=== PATIENT | female | born 1990 | race African-American/Black ===

== ENCOUNTER 2019-04-03 18:07 | Emergency (ER) | payer MEDICAID ==
[~2019-04-03] VITALS: Ht 165.1 cm; Wt 70.0 kg
[2019-04-03] MEDS ORDERED: DEXAMETHASONE 10 MG/ML VIAL IV ONE (18:30)
[2019-04-03] MEDS ORDERED: SODIUM CHLORIDE 0.9% 1,000 ML IV ONE (18:30)
[2019-04-03] MEDS ORDERED: FAMOTIDINE 20MG/2ML VIAL IV ONE (18:30)
[2019-04-03] MEDS ORDERED: DIPHENHYDRAMINE 50MG/ML VIAL IV ONE (18:30)
[2019-04-03 21:12] VITALS: BP 105/62
== END 2019-04-03 21:14 | disposition home or self-care (01) ==
LOC: ER 18:07
DX: T78.2XXA Anaphylactic shock, unspecified, initial encounter (principal); J45.909 Unspecified asthma, uncomplicated
CPT/HCPCS: 96374; 96375; 99283; J1100; J1200; J3490; J7030